=== PATIENT | male | born 1990 | race Asian ===

== ENCOUNTER 2024-01-04 08:04 | Day surgery (SDC) | payer OTHER ==
[~2024-01-04] VITALS: Ht 170.2 cm; Wt 55.3 kg
[2024-01-04] MEDS ORDERED: MIDAZOLAM HCL 5 MG/5 ML VIAL ONE (08:11)
[2024-01-04] MEDS ORDERED: MEPERIDINE 100 MG INJ. 100 MG/ML VIAL ONE (08:11)
[2024-01-04] MEDS ORDERED: DIPHENHYDRAMINE INJ 50 MG/ML VIAL ONE (11:05)
[2024-01-04 14:47] VITALS: O2SAT 99
[2024-01-04 15:04] VITALS: BP_SYST 110; PULSE 59; RESP 18
== END 2024-01-04 12:50 | disposition home or self-care (01) ==
LOC: SDS 08:04 → SMU 08:08 → SDS 12:50
PROVIDERS: ATTEND Internal Medicine Gastroenterology
DX: R63.4 Abnormal weight loss (principal); K92.2 Gastrointestinal hemorrhage, unspecified; K64.8 Other hemorrhoids; Z68.1 Body mass index [BMI] 19.9 or less, adult; Z87.891 Personal history of nicotine dependence
CPT/HCPCS: 45378; 99152; G0378; J1200; J2250; J2175